=== PATIENT | male | born 1985 | race African-American/Black ===

== ENCOUNTER 2017-05-23 15:09 | Emergency (ER) | payer SELFPAY ==
[2017-05-23 15:26] VITALS: BP 148/89; BMI 30.5
--- NOTE | 2017-05-23 16:29 | DR.RASH ---
HPI - Time Seen Time seen: 16:18 - PCP Primary Care Physician: PEREZ - HPI Comment HPI Comment: Rash on bilat forearms since starting back to work at [employer] in [place]. Pt reports childhood eczema. - Complaint Chief Complaint:: PT STATES " I HAVE A RASH TO MY RIGHT ARM AND ABOUT 0300 THIS AM I HAD DIARRHEA AND ABD PAIN I HAVE NO PAIN NOW I THINK IT MAY BE FROM A HAMBURGER MY GIRL FRIEND COOKED.. Chief Complaint Doctors Comments: "Rash on arms since starting to work at [employer] ". Onset of Chief Complaint: 05/22/17 - Reviewed Nurses Notes Review: Yes - Source History Provided: Patient - Mode of Arrival Mode of Arrival: Ambulatory PMH - PM Past Medical History: Yes Past Medical History: Hypertension Past Surgical History: No - Family History History of Family Medical Conditions: Yes Family Medical History: Hypertension - Social History Does patient currently use any type of tobacco product: Yes Have you used tobacco products in the last 12 months: Yes Type of Tobacco Use: Cigarettes How many years tobacco product used: 5 Does any household member use tobacco: No Alcohol Use: None Do you use any recreational Drugs:: No Lives With: Family Lives Where: Home - infectious screening In the last 2 months have you had wt loss of >10#?: NO Have you had fever, night sweats or hemotysis?: No Have you traveled outside the country in the last 6 months?: No Isolation: Standard ROS - Review of Systems Constitutional: No Symptoms Reported Respiratoy: No Symptoms Reported Cardiovascular: No Symptoms Reported Gastrointestinal/Abdominal: See HPI Genitourinary: No Symptoms Reported Neurological: No Symptoms Reported Musculoskeletal: No Symptoms Reported Integumentary: See HPI Hematologic/Lymphatic: No Symptoms Reported Endocrine: No Symptoms Reported Psychiatric: No Symptoms Reported All Other Systems: Reviewed and Negative PE - Vital Signs Vitals: Temperature 98.3 F Pulse Rate 12 Respiratory Rate 20 Blood Pressure 148/89 O2 Sat by Pulse Oximetry 97 - General Limitations: No Limitations General Appearance: Alert, In No Apparent Distress - Neck Neck Exam: Normal Inspection, Full ROM, Trachea Midline - Chest Chest Inspection: Normal Inspection, Symmetric Chest Wall Rise - Respiratory Respiratory Exam: Normal Lung Sounds Bilat Respiratory Exam: Bilateral Clear to Auscultation - Cardiovascular Cardiovascular Exam: Regular Rate, Normal Rhythm, Normal Heart Sounds - Abdominal Exam Abdominal Exam: Normal Inspection, Normal Bowel Sounds - Extremities Extremities Exam: Full ROM, Normal Capillary Refill - Neurologic Neurological Exam: Alert, Oriented X3, CN II-XII Intact - Psychiatric Psychiatric Exam: Normal Affect, Normal Mood - Skin Skin Exam: Warm, Dry, Intact, Rash (bilatr forearms, eczematous appearing lesions) Type of Lesion: Rash Distribution: Other (bilat forearms) Description: Macular, Cofluent, Crusting MDM - Differential Diagnosis Differential Diagnosis: Atopic dermatitis, Contact dermatitis, Pityriasis rosea , Tinea, Urticaria Course - Reevaluation 1st: Unchanged - Diagnosis Discharge Problem: Atopic dermatitis, unspecified Qualifiers: Atopic dermatitis type: atopic neurodermatitis Qualified Code(s): L20.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
== END 2017-05-23 17:07 | disposition home or self-care (01) ==
LOC: ER 15:28 → MERGE 15:28 → ER 17:07
DX: L20.81 Atopic neurodermatitis (principal)
CPT/HCPCS: 99281; 99282

== ENCOUNTER 2017-09-02 11:38 | Emergency (ER) | payer SELFPAY ==
[2017-09-02 11:43] VITALS: BP 196/116; BMI 30.5
--- NOTE | 2017-09-02 12:47 | DR.GENAD ---
HPI - PCP Primary Care Physician: NFD - Complaint/Symptoms Chief Complaint Doctors Comments: Patient with a history of eczema, is out of medication. He want a prescription for treatment of eczema. Chief Complaint:: PATIENT STATED THAT HAS RASH THAT IS ALL OVER HIS HANDS AND FACE. - Source History Provided: Patient - Mode of Arrival Mode of Arrival: Ambulatory - Timing Onset of Chief Complaint: 08/29/17 PMH - PMH Past Medical History: Yes Past Medical History: Asthma, Hypertension Past Surgical History: No Surgical History: No History - Family History History of Family Medical Conditions: Yes Family Medical History: Hypertension - Social History Does patient currently use any type of tobacco product: Yes Have you used tobacco products in the last 12 months: Yes Type of Tobacco Use: Cigarettes Does any household member use tobacco: No Alcohol Use: Occasionally Do you use any recreational Drugs:: No Lives With: Family Lives Where: Home - infectious screening In the last 2 months have you had wt loss of >10#?: NO Have you had fever, night sweats or hemotysis?: No Have you traveled outside the country in the last 6 months?: No Isolation: Standard ROS - Review of Systems Eyes: No Symptoms Reported ENTM: No Symptoms Reported Respiratoy: No Symptoms Reported Cardiovascular: No Symptoms Reported Gastrointestinal/Abdominal: No Symptoms Reported Genitourinary: No Symptoms Reported Neurological: No Symptoms Reported Musculoskeletal: No Symptoms Reported Integumentary: No Symptoms Reported, See HPI Hematologic/Lymphatic: No Symptoms Reported Endocrine: No Symptoms Reported Psychiatric: No Symptoms Reported All Other Systems: Reviewed and Negative PE - Vital Signs Vitals: Temperature 98.3 F Pulse Rate 109 Respiratory Rate 20 Blood Pressure 196/116 O2 Sat by Pulse Oximetry 98 - General Limitations: No Limitations General Appearance: Alert, In No Apparent Distress - Head Head Exam: Normal Inspection, Atraumatic - Eyes Eye exam: Normal Appearance, PERRL, EOMI - ENT ENT Exam: Normal Exam External Ear Exam: Normal External Inspection TM/Canal Exam: Bilateral Normal Nose Exam: Normal Nose Exam Mouth Exam: Normal Inspection Throat Exam: Normal Inspection - Neck Neck Exam: Normal Inspection, Full ROM - Chest Chest Inspection: Normal Inspection - Respiratory Respiratory Exam: Normal Lung Sounds Bilat Respiratory Exam: Bilateral Clear to Auscultation - Cardiovascular Cardiovascular Exam: Regular Rate, Normal Rhythm - Abdominal Exam Abdominal Exam: Normal Inspection, Normal Bowel Sounds Abdominal Tenderness: RUQ, RLQ, LUQ - Extremities Extremities Exam: Other (dry hyperpigmented skin) - Back Back Exam: Normal Inspection - Neurologic Neurological Exam: Alert, Oriented X3, CN II-XII Intact - Psychiatric Psychiatric Exam: Normal Affect, Normal Mood - Skin Skin Exam: Warm, Dry, Intact - Diagnosis Discharge Problem: Eczema Qualifiers: Eczema type: unspecified Qualified Code(s): L30.9 - Dermatitis, unspecified - Discharge Plan Condition: Stable - Follow ups/Referrals Follow ups/Referrals: NFD,None [Primary Care Provider] - 3 days - Instructions
== END 2017-09-02 13:05 | disposition home or self-care (01) ==
LOC: ER 11:47
DX: L30.9 Dermatitis, unspecified (principal)
CPT/HCPCS: 99281; 99282